=== PATIENT | male | born 1970 | race Caucasian/White ===

== ENCOUNTER 2020-03-05 10:07 | Emergency (ER) | payer OTHER ==
[~2020-03-05] VITALS: Ht 170.2 cm; Wt 56.7 kg
--- NOTE | 2020-03-05 10:10 | NUR ---
PT AMBULATED TO BED 10, STEADY GAIT.
[2020-03-05 10:11] VITALS: BP 128/91
--- NOTE | 2020-03-05 10:22 | NUR ---
50 Y/M PT PATIENT STATES HE NEEDS A PARACENTESIS, LAST PARACENTESIS WAS 3 WEEKS AGO. C/O ABD PAIN AND BLOATING. DENIES NAUSEA/VOMITING. PT REPORTS HE WAS SCHEDULED FOR ENDOSCOPY TODAY, ALTHOUGH DUE TO THE FLUID ACCUMULATION PT INSTRUCTED TO COME TO ED FOR PARACENTESIS. ABD LARGE, ROUND, PT REPORTS 6/10 PAIN. PMH: NEGRITO NKDA
--- NOTE | 2020-03-05 11:00 | NUR ---
AT BEDSIDE FOR PARACENTESIS.
--- NOTE | 2020-03-05 11:09 | NUR ---
TIME OUT PERFORMED WITH
--- NOTE | 2020-03-05 12:51 | NUR ---
12-1500ML CANISTERS DRAINED FROM PERITONEAL CAVITY. DR. RIVAS MADE AWARE.
--- NOTE | 2020-03-05 12:53 | NUR ---
PT TOLERATED WELL. VS WNL.
[2020-03-05 13:19] VITALS: BP 107/65
--- NOTE | 2020-03-05 13:19 | NUR ---
Patient discharged with v/s stable. Written and verbal after care instructions given and explained. Patient verbalized understanding. Ambulatory with steady gait. All questions addressed prior to discharge. Advised to follow up with PMD.
== END 2020-03-05 13:19 | disposition home or self-care (01) ==
LOC: MED 10:07
DX: K70.31 Alcoholic cirrhosis of liver with ascites (principal)
CPT/HCPCS: 99285

== ENCOUNTER 2021-11-20 08:41 | Day surgery (SDC) | payer OTHER ==
[~2021-11-20] VITALS: Ht 172.7 cm; Wt 57.2 kg
[2021-11-20] MEDS ORDERED: MIDAZOLAM 2 MG/2 ML VIAL ONE (10:40)
[2021-11-20] MEDS ORDERED: fentaNYL citrate 0.05 MG/ML VIAL ONE (10:40)
[2021-11-20] MEDS ORDERED: MIDAZOLAM 2 MG/2 ML VIAL IVP ONE (12:45)
== END 2021-11-20 12:21 | disposition home or self-care (01) ==
LOC: MDS 08:41 → MMU 08:41 → MDS 12:21
PROVIDERS: ATTEND Internal Medicine Gastroenterology
DX: K70.30 Alcoholic cirrhosis of liver without ascites (principal); K42.9 Umbilical hernia without obstruction or gangrene; Z79.899 Other long term (current) drug therapy; Z20.822 Contact with and (suspected) exposure to COVID-19
CPT/HCPCS: 43235; 87426; J2250; J3010